=== PATIENT | female | born 1990 | race Two or more races ===

== ENCOUNTER 2025-04-22 19:15 | Emergency (ER) | payer OTHER ==
[~2025-04-22] VITALS: Ht 162.6 cm; Wt 59.0 kg
[2025-04-22] MEDS ORDERED: PRENATABS FA T1 EACH (19:38)
[2025-04-22 20:23] LABS: BASO % 0.5 % (0.1-1.2); EOS # 0.18 (0.04-0.54); EOS % 2.1 % (0.7-7.0); LYMPH # 2.26 (1.18-3.74); LYMPH % 26.8 % (19.3-53.1); MEAN PLATELET VOLUME 12.10 fl (9.4-12.4); MONO # 0.69 (0.24-0.82); MONO % 8.2 % (4.7-12.5); NEUT # 5.24 (1.56-6.13); NEUT % 62.2 % (34.0-71.1); RED CELL DISTRIBUTION WIDTH 12.3 % (11.6-14.4)
[2025-04-22 20:49] LABS: URINE APPEARANCE Clear; URINE BILIRRUBIN Negative (NEGATIVE); URINE BLOOD Large; URINE COLOR Yellow; URINE GLUCOSE Negative (NEGATIVE); URINE KETONE 15 (NEGATIVE); URINE LEUKOCYTE Negative; URINE NITRATE Negative; URINE PROTEIN 30 (NEGATIVE); URINE UROBILINOGEN 1.0 E.U./dl
[2025-04-22 20:56] LABS: INR 1.0
[2025-04-22 20:57] LABS: URINE BACTERIA 352.8 uL (0.0-1933); URINE EPITHELIAL CELLS 6.6 uL (0.0-38.8); URINE RBC 188.6 uL (0.0-20.8); URINE WBC 7.6 uL (0.0-23.2)
[2025-04-22 21:00] LABS: BUN CREA RATIO 11.0 (7.0-25.0); CREATININE SERUM 0.61 mg/dL (0.55-1.02); GFR 112.27; GLUCOSE FASTING 111.0 mg/dL (65-100); OSMOLALITY SERUM 278.0 MOSM/KG (275-295)
[2025-04-22 21:01] LABS: URINE CAST 0.29 uL (0.0-1.40)
== END 2025-04-22 22:26 | disposition home or self-care (01) ==
LOC: ER 19:15
PROVIDERS: General Practice
DX: O20.8 Other hemorrhage in early pregnancy (principal); Z3A.11 11 weeks gestation of pregnancy